=== PATIENT | female | born 1985 | race African-American/Black ===

== ENCOUNTER 2019-01-26 22:55 | Emergency (ER) | payer MEDICAID ==
[~2019-01-26] VITALS: Ht 170.2 cm; Wt 92.0 kg
[2019-01-27] MEDS ORDERED: ONDANSETRON HCL 4MG/2ML INJ IV STA (02:26)
[2019-01-27] MEDS ORDERED: DICYCLOMINE 10 MG/5 ML ORAL SYR PO STA (02:26)
[2019-01-27] MEDS ORDERED: SODIUM CHLORIDE 0.9% 1,000 ML IV ONE (02:26)
[2019-01-27 02:51] LABS: BASOPHILS % 0.7 % (0.0-2.0); EOSINOPHILS % 1.8 % (0.0-5.0); HEMATOCRIT. 41.4 % (36.0-48.0); HEMOGLOBIN. 13.7 g/dL (12.0-16.0); MEAN CORPUSCULAR HEMOGLOBIN 27.4 pg (28.0-32.0); MEAN CORPUSCULAR VOLUME 82.6 fL (81.0-99.0); MONOCYTES % 7.6 % (2.0-8.0); NEUTROPHILS % 63.9 % (40.0-76.0); PLATELET 375 x1000/uL (130-400); RED BLOOD CELL COUNT 5.01 mill/uL (4.2-5.4); RED CELL DISTRIBUTION WIDTH 14.6 % (11.6-14.6)
[2019-01-27 03:07] LABS: CHLORIDE 106 mEq/L (98-107)
[2019-01-27 04:34] VITALS: BP 101/61
== END 2019-01-27 04:37 | disposition home or self-care (01) ==
LOC: ER 22:55
DX: K52.9 Noninfective gastroenteritis and colitis, unspecified (principal); Z90.49 Acquired absence of other specified parts of digestive tract; Z88.5 Allergy status to narcotic agent
CPT/HCPCS: 36415; 80053; 81025; 85025; 96361; 96374; 99283; J2405; J7030; Z7610

== ENCOUNTER 2019-05-03 20:24 | Emergency (ER) | payer MEDICAID, OTHER ==
[~2019-05-03] VITALS: Ht 170.2 cm; Wt 100.0 kg
[2019-05-03 21:05] VITALS: BP 129/81
== END 2019-05-04 01:15 | disposition left against medical advice (07) ==
LOC: ER 20:24
DX: Z53.21 Procedure and treatment not carried out due to patient leaving prior to being seen by health care provider (principal)

== ENCOUNTER 2024-08-26 18:42 | Emergency (ER) | payer MEDICAID, OTHER ==
[~2024-08-26] VITALS: Ht 175.3 cm; Wt 121.0 kg
[~2024-08-26 18:42] MED LIST: NITR-87 MT
[2024-08-26 18:44] VITALS: O2SAT 100
[2024-08-26 18:50] VITALS: BP 140/95; PULSE 87; RESP 18; O2SAT 98
[2024-08-26] MEDS ORDERED: METOCLOPRAMIDE HCL 10MG/2ML VIAL IV ONE (19:30)
[2024-08-26] MEDS ORDERED: SODIUM CHLORIDE 0.9% 1,000 ML IV ONE (19:30)
[2024-08-26] MEDS ORDERED: KETOROLAC 30MG/ML VIAL IV STA (19:30)
[2024-08-26 21:12] LABS: CHLORIDE 105 mEq/L (98-107); POTASSIUM 4.1 mEq/L (3.5-5.1); SODIUM 141 mEq/L (136-145)
[2024-08-26 21:13] LABS: CALCIUM 8.8 mg/dL (8.7-10.4); CARBON DIOXIDE 28 mEq/L (21-32)
[2024-08-26 21:18] LABS: CREATININE 1.1 mg/dL (0.6-1.0); GLUCOSE 100 mg/dL (70-105); UREA NITROGEN BLOOD 15 mg/dL (9-23)
[2024-08-26] MEDS ORDERED: KETOROLAC 30MG/ML VIAL IV NR (22:45)
[2024-08-26] MEDS ORDERED: METOCLOPRAMIDE HCL 10MG/2ML VIAL IV NR (22:45)
[2024-08-26 23:00] VITALS: TEMP 97.9
[2024-08-26] MEDS ORDERED: METOCLOPRAMIDE 10MG/10 ML UDC PO ONE (23:00)
[2024-08-26] MEDS: ACETAMINOPHEN 325MG TABLET PO ONE (23:00)
[2024-08-26] MEDS ORDERED: ONDA4TAB50 PO (23:02)
[2024-08-26] MEDS ORDERED: TOPUD PO (23:02)
[2024-08-26] MEDS ORDERED: METOCLOPRAMIDE 10MG/10 ML UDC PO NR (23:30)
[2024-08-26] MEDS: METOCLOPRAMIDE 10MG/10 ML UDC PO NR (23:30)
== END 2024-08-27 | disposition home or self-care (01) ==
LOC: ER 18:42
DX: R10.84 Generalized abdominal pain (principal); R11.2 Nausea with vomiting, unspecified; Z90.49 Acquired absence of other specified parts of digestive tract; Z88.5 Allergy status to narcotic agent
CPT/HCPCS: 80048; 36415; 71045; 99284; J8597; Z7610; J7030

== ENCOUNTER 2025-08-08 17:29 | Emergency (ER) | payer MEDICAID ==
[~2025-08-08] VITALS: Ht 175.3 cm; Wt 122.0 kg
[~2025-08-08 17:29] MED LIST changes: +ONDA4TAB50 PO; +TOPUD PO
[2025-08-08 18:10] VITALS: TEMP 36.7; O2SAT 100
[2025-08-08 18:32] LABS: BASOPHILS % 0.8 % (0.0-2.0); EOSINOPHILS % 0.5 % (0.0-5.0); HEMATOCRIT. 40.6 % (36.0-48.0); HEMOGLOBIN. 13.6 g/dL (12.0-16.0); LYMPHOCYTES % 15.8 % (20.0-50.0); MEAN PLATELET VOLUME 8.9 fl (7.4-10.4); MONOCYTES % 3.9 % (2.0-8.0); NEUTROPHILS % 79.0 % (40.0-76.0); PLATELET 336 x1000/uL (130-400); RED BLOOD CELL COUNT 4.89 mill/uL (4.2-5.4); RED CELL DISTRIBUTION WIDTH 14.7 % (11.6-14.6)
[2025-08-08 18:44] LABS: CREATININE 0.9 mg/dL (0.6-1.0)
[2025-08-08 18:45] LABS: UREA NITROGEN BLOOD 11 mg/dL (9-23)
[2025-08-08 18:47] LABS: ASPARTATE AMINOTRANSFERASE 17 IU/L (<34); BILIRUBIN DIRECT 0.1 mg/dL (<=3.0); BILIRUBIN TOTAL 0.5 mg/dL (0.1-1.0); PROTEIN TOTAL 7.5 g/dL (6.0-8.3)
[2025-08-08 20:14] VITALS: TEMP 98.1
[2025-08-08] MEDS: ACETAMINOPHEN 500MG TABLET PO ONE (20:14)
[2025-08-08] MEDS: ONDANSETRON 4MG ODT PO ONE (20:14)
[2025-08-08 20:52] LABS: CLARITY URINE CLEAR (CLEAR); COLOR URINE YELLOW (YELLOW); GLUCOSE URINE NEGATIVE (NEGATIVE); KETONES URINE NEGATIVE (NEGATIVE); LEUKOCYTE ESTERASE URINE TRACE (NEGATIVE); NITRITE URINE NEGATIVE (NEGATIVE); OCCULT BLOOD URINE 2+ (NEGATIVE); PH URINE 7.5 (4.5-8.0); PROTEIN URINE TRACE (NEGATIVE); SPECIFIC GRAVITY URINE 1.027 (1.005-1.030); UROBILINOGEN URINE 1.0 E.U./dL (0.2-1.0)
[2025-08-08 21:00] LABS: *AMPHETAMINES SCREEN URINE NEGATIVE (NEGATIVE); *BARBITURATES SCREEN URINE NEGATIVE (NEGATIVE); *BENZODIAZEPINES SCREEN URINE NEGATIVE (NEGATIVE); *COCAINE SCREEN URINE NEGATIVE (NEGATIVE); CANNABINOID URINE SCREEN NEGATIVE (NEGATIVE); ECSTASY MDMA SCREEN URINE NEGATIVE (NEGATIVE); METHADONE URINE SCREEN NEGATIVE (NEGATIVE); OPIATES URINE SCREEN NEGATIVE (NEGATIVE); PHENCYCLIDINE URINE SCREEN NEGATIVE (NEGATIVE)
[2025-08-08 21:26] LABS: BACTERIA URINE TRACE; RBC URINE 0-2 /hpf (0-2); SQUAMOUS EPITHELIAL CELL URINE FEW /lpf (RARE/1+); WBC URINE NONE SEEN /hpf (0-2)
[2025-08-08 23:18] VITALS: BP 135/89; PULSE 61; RESP 16; O2SAT 99
== END 2025-08-08 23:19 | disposition home or self-care (01) ==
LOC: ER 17:29
DX: K80.70 Calculus of gallbladder and bile duct without cholecystitis without obstruction (principal); N28.1 Cyst of kidney, acquired; Z88.5 Allergy status to narcotic agent; Z90.49 Acquired absence of other specified parts of digestive tract; Z79.899 Other long term (current) drug therapy
CPT/HCPCS: 99284; 74176; 80076; 80305; 80048; 81003; 81025; 83690; 85025; 36415; Q0162

== ENCOUNTER 2025-08-10 18:59 | Emergency (ER) | payer OTHER, MEDICAID ==
[~2025-08-10] VITALS: Ht 170.2 cm; Wt 114.0 kg
[2025-08-10 19:23] VITALS: O2SAT 97
[2025-08-10 23:25] LABS: BASOPHILS % 1.1 % (0.0-2.0); EOSINOPHILS % 3.1 % (0.0-5.0); HEMATOCRIT. 40.7 % (36.0-48.0); HEMOGLOBIN. 13.4 g/dL (12.0-16.0); LYMPHOCYTES % 35.1 % (20.0-50.0); MEAN PLATELET VOLUME 9.6 fl (7.4-10.4); MONOCYTES % 6.1 % (2.0-8.0); NEUTROPHILS % 54.6 % (40.0-76.0); PLATELET 345 x1000/uL (130-400); RED BLOOD CELL COUNT 4.85 mill/uL (4.2-5.4); RED CELL DISTRIBUTION WIDTH 14.7 % (11.6-14.6)
[2025-08-10 23:40] LABS: CREATININE 0.9 mg/dL (0.6-1.0); UREA NITROGEN BLOOD 17 mg/dL (9-23)
[2025-08-10 23:41] LABS: TROPONIN I HIGH SENSITIVITY 12 ng/L (3.0-34)
[2025-08-10 23:42] LABS: ASPARTATE AMINOTRANSFERASE 17 IU/L (<34); BILIRUBIN DIRECT 0.1 mg/dL (<=3.0)
[2025-08-10 23:43] LABS: BILIRUBIN TOTAL 0.4 mg/dL (0.1-1.0); PROTEIN TOTAL 7.3 g/dL (6.0-8.3)
[2025-08-10 23:44] LABS: HCG SCREEN NEGATIVE
[2025-08-10] MEDS: KETOROLAC 30MG/ML VIAL IM ONE (23:48)
[2025-08-10] MEDS: LIDOCAINE 5% PATCH TOP STA (23:49)
[2025-08-10] MEDS: CYCLOBENZAPRINE 10MG TABLET PO ONE (23:49)
[2025-08-11 02:33] LABS: TROPONIN I HIGH SENSITIVITY 11 ng/L (3.0-34)
[2025-08-11] MEDS ORDERED: IBUP-1455 MT (02:44)
[2025-08-11] MEDS ORDERED: CYCL10TA21 MT (02:44)
[2025-08-11] MEDS ORDERED: LIDO700A30 TP (02:44)
[2025-08-11 03:04] VITALS: BP 122/86; PULSE 64; RESP 14; TEMP 37.1; O2SAT 99
== END 2025-08-11 03:00 | disposition home or self-care (01) ==
LOC: ER 18:59
DX: S83.005A Unspecified dislocation of left patella, initial encounter (principal); Z90.49 Acquired absence of other specified parts of digestive tract; R06.02 Shortness of breath; Z88.5 Allergy status to narcotic agent; V89.2XXA Person injured in unspecified motor-vehicle accident, traffic, initial encounter; Y93.89 Activity, other specified; Y99.8 Other external cause status; Y92.410 Unspecified street and highway as the place of occurrence of the external cause
CPT/HCPCS: 99285; 27560; 71046; 80076; 80048; 84703; 83880; 85025; 84484 ×2; 36415 ×2; 73560 ×3; 93005 ×2; 96372; 71250; 74176; J1885